=== PATIENT | female | born 1995 | race Caucasian/White ===

== ENCOUNTER → 2022-06-14 | Outpatient (CLI) | payer OTHER ==
[~2022-06-14] MED LIST: AMOX1TAB12; CETI10TA17; CYCL10TA25; NORG1TAB14; SULF1TAB38 PO
--- NOTE | 2022-06-14 18:01 | Diagnostic Imaging Report ---
INDICATION: Anatomic survey TECHNIQUE: Multiple real-time grayscale images were obtained over the gravid uterus. COMPARISON: None FINDINGS: There is a single live intrauterine gestation in breech presentation. The cervix measures 4.9 cm and no funneling is seen. The placenta is anterior without evidence of previa. The heart rate measures 150 BPM. The amniotic fluid appears grossly normal. A vertical pocket is seen measuring 4.9 cm. The stomach is seen. The four-chamber heart is seen. The bladder is seen. There are 2 umbilical arteries consistent with a three-vessel cord. The cord insertion is seen. The lateral ventricle, cerebellum and cisterna magna are seen. The upper and lower spine are seen. The right and left ventricular outflow tracts are seen. The kidneys are seen. The face is suboptimally visualized. Biometrical measurements are as follows: Biparietal 5.14 cm, age 21 weeks 5 days. Head circumference 19.26 cm, age 21 weeks 4 days. Abdominal circumference 17.60 cm, age 22 weeks 4 days. Femur length 3.35 cm, age 20 weeks 4 days. Sonographic estimate age: 21 weeks 5 days. Sonographic estimated date of delivery: 10/20/2022. Estimated Weight: 436 gm (+/- 64 gm). LMP percentile: 45%. heart rate: 150 beats per minute. number: 1 of 1. IMPRESSION: 1. Single live intrauterine gestation measuring at 21 weeks and 5 days which is within range of the clinical dates. 2. Anatomic survey, with no abnormality seen. 3. Breech presentation. Dictated by: Dictated on workstation # [id number]
== END ==
LOC: RAD 15:15
PROVIDERS: ATTEND Nurse Practitioner Women's Health
DX: O32.1XX0 Maternal care for breech presentation, not applicable or unspecified (principal); Z3A.21 21 weeks gestation of pregnancy
CPT/HCPCS: 76805